=== PATIENT | female | born 1965 | race Caucasian/White ===

== ENCOUNTER → 2023-08-15 09:11 | Outpatient (REF) | payer OTHER, SELFPAY ==
[2023-08-15 10:49] LABS: ALT (SGPT) 29 U/L (0-35); AST (SGOT) 34 U/L (14-36); Albumin 4.2 g/dl (3.5-5.0); Alkaline Phosphatase 94 U/L (38-126); Direct Bilirubin 0.4 mg/dl (0.0-0.4); Iron 141 ug/dl (37-170); Total Bilirubin 0.6 mg/dl (0.2-1.3); Total Protein 6.6 g/dl (6.3-8.2)
[2023-08-15 10:59] LABS: Percent Saturation 52 % (20-50); Total Iron Binding Capacity 270 ug/dl (265-497)
[2023-08-15 12:25] LABS: Ferritin 52.7 ng/ml (11.1-264.0)
== END ==
LOC: REG 09:11
PROVIDERS: ATTENDING PHYSICIAN Internal Medicine Hematology & Oncology; FAMILY PHYSICIAN Physician Assistant Medical; REFERRING PHYSICIAN Internal Medicine Gastroenterology
DX: E83.119 Hemochromatosis, unspecified (principal); R53.83 Other fatigue; R79.89 Other specified abnormal findings of blood chemistry
CPT/HCPCS: 36415; 80076; 82728; 83540; 83550

== ENCOUNTER 2023-08-21 06:29 | Day surgery (SDC) | payer OTHER, SELFPAY ==
[2023-08-21 11:06] VITALS: BMI 22.9
[2023-08-21 11:08] VITALS: BP 111/73
[2023-08-21 13:32] VITALS: BP 106/65
[2023-08-21 13:47] VITALS: BP 108/79
[2023-08-21 14:12] VITALS: BP 111/79
== END 2023-08-21 14:15 | disposition home or self-care (01) ==
LOC: GI 06:29
PROVIDERS: ATTENDING PHYSICIAN Internal Medicine Gastroenterology
DX: K83.8 Other specified diseases of biliary tract (principal); R74.8 Abnormal levels of other serum enzymes
CPT/HCPCS: 43237

== ENCOUNTER → 2023-09-09 08:49 | Outpatient (REF) | payer OTHER, SELFPAY | LOC: MRI 3T 08:49 | PROVIDERS: ATTENDING PHYSICIAN Otolaryngology Otology & Neurotology; FAMILY PHYSICIAN Physician Assistant Medical | DX: H90.3 Sensorineural hearing loss, bilateral (principal) | CPT/HCPCS: 70553; A9575 ==

== ENCOUNTER → 2023-12-22 06:39 | Day surgery (SDC) | payer OTHER, SELFPAY | LOC: GI 06:39 | PROVIDERS: ATTENDING PHYSICIAN Internal Medicine Gastroenterology | DX: Z12.11 Encounter for screening for malignant neoplasm of colon (principal); Z83.719 Family history of colon polyps, unspecified; K63.5 Polyp of colon | CPT/HCPCS: 45385; 88305 ==

== ENCOUNTER → 2024-01-01 09:49 | Outpatient (REF) | payer OTHER, SELFPAY ==
[2024-01-01 11:25] LABS: Blood Urea Nitrogen 13 mg/dl (7-17); Calcium 9.6 mg/dl (8.4-10.2); Carbon Dioxide 27 mmol/L (22-30); Chloride 102 mmol/L (98-107); Glucose 95 mg/dl (70-99); HDL Cholesterol 63 mg/dl; Iron 115 ug/dl (37-170); LDL Cholesterol, Calculated 135 mg/dl; Sodium 138 mmol/L (135-145); Total Cholesterol 218 mg/dl (50-199); Triglyceride 100 mg/dl (10-149); Very Low Density Lipoprotein 20 mg/dl (0-30); eGFR > 60.00
[2024-01-01 11:33] LABS: Percent Saturation 45 % (20-50); Total Iron Binding Capacity 252 ug/dl (265-497)
[2024-01-01 11:41] LABS: Free T4 0.73 ng/dl (0.78-2.19); Vitamin D, 25-OH*** 41.8 ng/mL (30-80)
[2024-01-01 11:55] LABS: TSH 2.41 uIU/ml (0.47-4.68)
[2024-01-01 11:59] LABS: Ferritin 52.9 ng/ml (11.1-264.0)
== END ==
LOC: REG 09:49
PROVIDERS: ATTENDING PHYSICIAN Internal Medicine Hematology & Oncology; FAMILY PHYSICIAN Physician Assistant Medical; REFERRING PHYSICIAN Internal Medicine Endocrinology, Diabetes & Metabolism
DX: E55.9 Vitamin D deficiency, unspecified (principal); Z00.01 Encounter for general adult medical examination with abnormal findings; E83.119 Hemochromatosis, unspecified; R53.83 Other fatigue; E03.9 Hypothyroidism, unspecified
CPT/HCPCS: 36415; 80048; 80061; 82306; 82728; 83540; 83550; 84439; 84443

== ENCOUNTER → 2024-01-26 07:30 | Outpatient (REF) | payer SELFPAY | LOC: CLAB 07:30 | PROVIDERS: ATTENDING PHYSICIAN Otolaryngology | DX: N62 Hypertrophy of breast (principal) | CPT/HCPCS: 88305 ==

== ENCOUNTER → 2024-06-07 11:45 | Outpatient (REF) | payer OTHER, SELFPAY | LOC: WDC 11:45 | PROVIDERS: ATTENDING PHYSICIAN Obstetrics & Gynecology Gynecology; FAMILY PHYSICIAN Physician Assistant Medical | DX: Z01.419 Encounter for gynecological examination (general) (routine) without abnormal findings (principal); Z12.31 Encounter for screening mammogram for malignant neoplasm of breast | CPT/HCPCS: 77063; 77067 ==

== ENCOUNTER → 2024-07-01 08:22 | Outpatient (REF) | payer OTHER, SELFPAY ==
[2024-07-01 11:20] LABS: Free T4 0.89 ng/dl (0.78-2.19)
[2024-07-01 11:33] LABS: TSH 1.28 uIU/ml (0.47-4.68)
== END ==
LOC: REG 08:22
PROVIDERS: ATTENDING PHYSICIAN Internal Medicine Endocrinology, Diabetes & Metabolism; FAMILY PHYSICIAN Physician Assistant Medical
DX: E03.9 Hypothyroidism, unspecified (principal)
CPT/HCPCS: 36415; 84439; 84443

== ENCOUNTER → 2024-09-03 11:24 | Outpatient (REF) | payer OTHER, SELFPAY | LOC: HWRAD 11:24 | PROVIDERS: ATTENDING PHYSICIAN Otolaryngology; FAMILY PHYSICIAN Physician Assistant Medical | DX: J32.4 Chronic pansinusitis (principal) | CPT/HCPCS: 70486 ==

== ENCOUNTER → 2024-09-13 12:31 | Outpatient (REF) | payer OTHER, SELFPAY | LOC: MRI 3T 12:31 | PROVIDERS: ATTENDING PHYSICIAN Otolaryngology Otology & Neurotology; FAMILY PHYSICIAN Physician Assistant Medical | DX: D33.3 Benign neoplasm of cranial nerves (principal) | CPT/HCPCS: 70553; A9575 ==

== ENCOUNTER → 2024-10-15 08:29 | Outpatient (REF) | payer OTHER, SELFPAY ==
[2024-10-15 09:09] LABS: % Basophils 0.8 % (0-2); % Eosinophils 3.3 % (0-6); % Immature Granulocytes 0.2 % (0-0.5); % Lymphocytes 32.1 % (20.5-51.1); % Monocytes 9.1 % (1.7-9.3); % Neutrophils 54.5 % (42.2-75.2); Absolute Eosinophils 0.2 10^3/uL (0-0.7); Absolute Lymphocytes 1.6 10^3/uL (1.2-3.4); Absolute Monocytes 0.5 10^3/uL (0.1-0.6); Absolute Neutrophils 2.7 10^3/uL (1.4-6.5); Hematocrit 41.2 % (37.0-47.0); Hemoglobin 14.3 g/dL (12.0-16.0); Mean Corp Hgb Conc. 34.7 g/dL (33.0-37.0); Mean Corpuscular Hgb 33.8 pg (27.0-31.0); Mean Corpuscular Volume 97.4 fL (81.0-99.0); Mean Platelet Volume 10.1 fL (7.4-10.4); Nucleated Red Blood Cells % 0 %; Platelet Count 197 10^3/uL (130-400); Red Blood Cell Count 4.23 10^6/uL (4.20-5.40); Red Cell Dist. Width 11.6 % (11.5-14.5); White Blood Cell Count 4.9 10^3/uL (4.8-10.8)
[2024-10-15 09:30] LABS: ALT (SGPT) 27 U/L (0-35); AST (SGOT) 31 U/L (14-36); Albumin 4.1 g/dl (3.5-5.0); Alkaline Phosphatase 71 U/L (38-126); Blood Urea Nitrogen 17 mg/dl (7-17); Calcium 9.8 mg/dl (8.4-10.2); Carbon Dioxide 33 mmol/L (22-30); Chloride 103 mmol/L (98-107); Glucose 94 mg/dl (70-99); HDL Cholesterol 67 mg/dl; Iron 130 ug/dl (37-170); LDL Cholesterol, Calculated 132 mg/dl; Sodium 142 mmol/L (135-145); Total Bilirubin 0.6 mg/dl (0.2-1.3); Total Cholesterol 216 mg/dl (50-199); Total Protein 6.6 g/dl (6.3-8.2); Triglyceride 89 mg/dl (10-149); Very Low Density Lipoprotein 17 mg/dl (0-30); eGFR > 60.00
[2024-10-15 09:40] LABS: Percent Saturation 47 % (20-50); Total Iron Binding Capacity 271 ug/dl (265-497)
[2024-10-15 10:07] LABS: Ferritin 48.8 ng/ml (11.1-264.0)
== END ==
LOC: REG 08:29
PROVIDERS: ATTENDING PHYSICIAN Physician Assistant Medical; OTHER PHYSICIAN Internal Medicine Hematology & Oncology
DX: Z00.01 Encounter for general adult medical examination with abnormal findings (principal); E83.110 Hereditary hemochromatosis
CPT/HCPCS: 36415; 80053; 80061; 82728; 83540; 83550; 85025

== ENCOUNTER → 2024-12-02 08:01 | Outpatient (REF) | payer OTHER, SELFPAY ==
[2024-12-02 10:06] LABS: Free T4 0.98 ng/dl (0.78-2.19)
[2024-12-02 10:20] LABS: TSH 2.53 uIU/ml (0.47-4.68)
== END ==
LOC: REG 08:01
PROVIDERS: ATTENDING PHYSICIAN Internal Medicine Endocrinology, Diabetes & Metabolism; FAMILY PHYSICIAN Physician Assistant Medical
DX: E03.9 Hypothyroidism, unspecified (principal)
CPT/HCPCS: 36415; 84439; 84443

== ENCOUNTER → 2025-06-07 10:06 | Outpatient (REF) | payer OTHER, SELFPAY ==
[2025-06-07 12:22] LABS: ALT (SGPT) 25 U/L (0-35); AST (SGOT) 30 U/L (14-36); Albumin 4.4 g/dl (3.5-5.0); Alkaline Phosphatase 95 U/L (38-126); Blood Urea Nitrogen 12 mg/dl (7-17); Calcium 9.5 mg/dl (8.4-10.2); Carbon Dioxide 30 mmol/L (22-30); Chloride 103 mmol/L (98-107); Glucose 90 mg/dl (70-99); Potassium 4.9 mmol/L (3.5-5.1); Sodium 138 mmol/L (135-145); Total Protein 7.1 g/dl (6.3-8.2); eGFR > 60.00
[2025-06-07 12:51] LABS: TSH 4.48 uIU/ml (0.47-4.68)
== END ==
LOC: REG 10:06
PROVIDERS: ATTENDING PHYSICIAN Internal Medicine Endocrinology, Diabetes & Metabolism; FAMILY PHYSICIAN Physician Assistant Medical
DX: E03.9 Hypothyroidism, unspecified (principal)
CPT/HCPCS: 36415; 80053; 84439; 84443

== ENCOUNTER → 2025-06-08 13:29 | Outpatient (REF) | payer OTHER, SELFPAY | LOC: WDC 13:29 | PROVIDERS: ATTENDING PHYSICIAN Obstetrics & Gynecology Gynecology; FAMILY PHYSICIAN Physician Assistant Medical | DX: Z12.31 Encounter for screening mammogram for malignant neoplasm of breast (principal); Z12.39 Encounter for other screening for malignant neoplasm of breast | CPT/HCPCS: 77063; 77067 ==